=== PATIENT | female | born 1995 | race Hispanic/Latino ===

== ENCOUNTER 2017-11-15 22:13 | Emergency (ER) | payer SELFPAY ==
[~2017-11-15] VITALS: Ht 167.6 cm; Wt 65.3 kg
[2017-11-15] MEDS ORDERED: CIPROFLOXACIN 500 MG TAB PO STA (22:45)
[2017-11-15] MEDS ORDERED: IBUPROFEN 400 MG TAB PO ONE (22:45)
== END 2017-11-15 22:50 | disposition home or self-care (01) ==
LOC: FSED 22:13
DX: N30.91 Cystitis, unspecified with hematuria (principal); R03.0 Elevated blood-pressure reading, without diagnosis of hypertension
CPT/HCPCS: 87086; 87186; 99283